=== PATIENT | male | born 1995 | race Caucasian/White ===

== ENCOUNTER 2017-04-23 01:06 | Emergency (ER) | payer OTHER ==
[2017-04-23 01:35] VITALS: BP 135/51
[2017-04-23] MEDS ORDERED: oxyCODONE/Acetamin 5/325 MG* TAB PO ONE ×2 (02:52→03:20)
[2017-04-23] MEDS ORDERED: Tetan/Diph/Pertus SYR(Tdap)* 0.5 ML SYR(BOOSTRIX) use SYR IM ONE (02:53)
[2017-04-23] MEDS ORDERED: Ibuprofen TAB* 800 MG PO ONE (02:54)
[2017-04-23] MEDS ORDERED: Neomycin/Polym/Bacit TOP OINT* 15 GM TOPICAL ONE (02:54)
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
== END 2017-04-23 05:23 | disposition home or self-care (01) ==
LOC: ED 01:06
DX: T23.201A Burn of second degree of right hand, unspecified site, initial encounter (principal); X08.8XXA Exposure to other specified smoke, fire and flames, initial encounter; Y93.89 Activity, other specified; Y92.9 Unspecified place or not applicable; Z23 Encounter for immunization
CPT/HCPCS: 90471; 90715; 99282; A9270-GY